=== PATIENT | female | born 1960 | race Caucasian/White ===

== ENCOUNTER 2019-12-04 16:24 | Inpatient (IN) | payer MEDICAID ==
[~2019-12-04] VITALS: Ht 170.2 cm; Wt 54.4 kg
[2019-12-04 17:01] LABS: APTT 28.8 SECONDS (22.8-39.4); INR 1.24 (0.85-1.17); PROTIME 15.5 SECONDS (11.6-15.0)
[2019-12-04 17:04] LABS: BASOPHILS 0.3 % (0-2); EOSINOPHILS 0.3 % (0-7); HEMATOCRIT 34.5 % (36.0-48.0); HEMOGLOBIN 11.5 g/dL (12-16); IMMATURE GRANULOCYTES 3.2 % (0-5); LYMPHOCYTES 5.6 % (15-50); MCHC 33.3 g/dL (31.0-37.0); MCV 87.1 fL (80.0-100.0); MEAN PLATELET VOLUME 8.6 fL (7.4-10.4); MONOCYTES 3.1 % (2-11); NEUTROPHILS 87.5 % (40-80); PLATELET COUNT 212 10x3/uL (130-400); RBC 3.96 10x6/uL (4.00-5.40); RDW 18.7 % (11.5-14.5); WBC 15.4 10x3/uL (4.8-10.8)
[2019-12-04 17:07] LABS: CALC OSMOLALITY 273 mosm/kg (275-300); CALCIUM 8.2 mg/dL (8.5-10.1); CARBON DIOXIDE 23.8 mmol/L (21.0-32.0); CHLORIDE - SERUM 96 mmol/L (98-107); CREATININE - SERUM 0.8 mg/dL (0.6-1.3); GLUCOSE 158 mg/dL (74-106); POTASSIUM - SERUM 3.8 mmol/L (3.5-5.1); SODIUM 132 mmol/L (136-145); UREA NITROGEN 28 mg/dL (7-18); eGFR NON AFRICAN AMERICAN 78 mL/min (90-120)
[2019-12-04 17:20] LABS: ALBUMIN 1.8 g/dL (3.4-5.0); ALKALINE PHOSPHATASE 932 U/L (30-120); ALT (SGPT) 125 U/L (10-68); BILIRUBIN - TOTAL 1.86 mg/dL (0.2-1.3); CKMB 1.4 U/L (0.0-3.6); CREATINE KINASE 139 UL (21-215); MAGNESIUM - SERUM 1.8 mg/dL (1.8-2.4); PROTEIN - SERUM 5.9 g/dL (6.4-8.2)
[2019-12-04 17:22] LABS: TROPONIN-I 0.078 ng/mL (0.000-0.060)
--- NOTE | 2019-12-04 17:45 | NUR ---
STERILE URINE SENT PER IN AND OUT CATHETER AT THIS TIME.
--- NOTE | 2019-12-04 18:07 | NUR ---
22 G TO LAC HAD BEEN ACCIDENTALLY PULLED OUT, CATH TIP INTACT. RESITED IV TO L HAND WITH 22G X1 STICK.
[2019-12-04 18:22] LABS: BILIRUBIN NEGATIVE (NEGATIVE); KETONE NEGATIVE (NEGATIVE); NITRITE NEGATIVE (NEGATIVE); UROBILINOGEN NORMAL mg/dL (< 2)
--- NOTE | 2019-12-04 18:40 | NUR ---
JERICA SENT TO LAB AT THIS TIME.
--- NOTE | 2019-12-04 19:06 | NUR ---
REPORT TO CORNELIO
[2019-12-04 20:17] LABS: % SATURATION 57 % (15-55); IRON 97 ug/dl (35-150); TOTAL IRON BIND CAPACITY 168 ug/dl (260-445); UNSAT IRON BIND CAPACITY 71 ug/dl (150-375)
[2019-12-04 21:32] VITALS: BP 107/69; BMI 18.8
--- NOTE | 2019-12-04 21:44 | NUR ---
RECEIVED PT FROM ER. PT IS AAO AND UP WITH ASSIST. CALL LIGHT W/I REACH. FALL PRECAUTIONS IN PLACE. RR EVEN AND UNLABORED ON 3L 02. VSS AND WNL. QUICKSTART, HISTORY, MED REQ, AND ASSESSMENT COMPLETED. PT DENIES ANY NEEDS AT THIS TIME. NO S/S OF DISTRESS NOTED. WILL CTM.
[2019-12-04 22:35] LABS: CKMB 2.7 U/L (0.0-3.6)
[2019-12-04 22:39] LABS: CREATINE KINASE 261 UL (21-215)
[2019-12-04 22:40] LABS: TROPONIN-I 0.111 ng/mL (0.000-0.060)
[2019-12-05 02:01] LABS: ALBUMIN 1.8 g/dL (3.4-5.0); ALKALINE PHOSPHATASE 853 U/L (30-120); ALT (SGPT) 138 U/L (10-68); BILIRUBIN - TOTAL 1.58 mg/dL (0.2-1.3); CALC OSMOLALITY 271 mosm/kg (275-300); CALCIUM 7.9 mg/dL (8.5-10.1); CARBON DIOXIDE 22.4 mmol/L (21.0-32.0); CHLORIDE - SERUM 99 mmol/L (98-107); CKMB 3.3 U/L (0.0-3.6); CREATINE KINASE 316 UL (21-215); CREATININE - SERUM 0.6 mg/dL (0.6-1.3); GLUCOSE 120 mg/dL (74-106); MAGNESIUM - SERUM 1.7 mg/dL (1.8-2.4); POTASSIUM - SERUM 3.7 mmol/L (3.5-5.1); PROTEIN - SERUM 5.8 g/dL (6.4-8.2); SODIUM 133 mmol/L (136-145); UREA NITROGEN 27 mg/dL (7-18); eGFR NON AFRICAN AMERICAN > 90 mL/min (90-120)
[2019-12-05 02:03] LABS: TROPONIN-I 0.133 ng/mL (0.000-0.060)
[2019-12-05 04:00] VITALS: BP 101/74
--- NOTE | 2019-12-05 05:27 | NUR ---
PT HAD LARGE EPISODE OF INCONTINENCE OF BOWEL AND BLADDER. CLEANED PT AND APPLIED NEW LINEN. PT PREVIOUSLY PULLED OUT PIV BUT STATED THAT SHE DIDNT. CATHETER TIP FULLY INTACT. STARTED NEW PIV TO THE LEFT FOREARM 22GA X1 ATTEMPT. WILL CTM.
--- NOTE | 2019-12-05 07:22 | NUR ---
LYING IN BED AWAKE, ALERT, SPEAKS TO NURSE, DENIES ANY NEEDS. NO DISTRESS NOTED.
[2019-12-05 07:41] LABS: HEMATOCRIT 33.1 % (36.0-48.0); HEMOGLOBIN 11.2 g/dL (12-16); MCH 29.3 pg (26.0-34.0); MCHC 33.8 g/dL (31.0-37.0); MCV 86.6 fL (80.0-100.0); MEAN PLATELET VOLUME 10.4 fL (7.4-10.4); RBC 3.82 10x6/uL (4.00-5.40); RDW 19.3 % (11.5-14.5); WBC 14.2 10x3/uL (4.8-10.8)
[2019-12-05 07:42] LABS: PLATELET COUNT 163 10x3/uL (130-400)
[2019-12-05 08:23] LABS: LYMPHOCYTES 3 % (15-50); MONOCYTES 3 % (2-11); NEUTROPHILS 90 % (40-80); PLATELET ESTIMATE NORMAL
[2019-12-05 08:46] VITALS: BP 113/71
--- NOTE | 2019-12-05 10:07 | NUR ---
NEW IV ACCESS TO RT WRIST W/20GA FOR ORDERED CTA/PAT/TINO CRITICAL CARE NURSE PRACTITIONER. PT TOLERATED WELL.
[2019-12-05 10:12] LABS: CREATINE KINASE 497 UL (21-215)
[2019-12-05 10:57] VITALS: BP 114/72
[2019-12-05 17:03] VITALS: BP 96/60
--- NOTE | 2019-12-05 19:00 | NUR ---
REPORT RECEIVED, WILL CONTINUE POC. PATIENT IS ALERT BUT PLEASANTLY CONFUSED. NO S/S OF DISTRESS OBSERVED, RR EVEN AND UNLABORED ON ROOM AIR. PATIENT DENIES FURTHER NEEDS AT THIS TIME. CL IN REACH, BED LOCKED AND LOWERED. WILL CTM.
[2019-12-05 20:00] VITALS: BP 100/61
[2019-12-06 04:00] VITALS: BP 109/72
[2019-12-06 07:28] LABS: BASOPHILS 0.1 % (0-2); EOSINOPHILS 0 % (0-7); HEMATOCRIT 33.7 % (36.0-48.0); HEMOGLOBIN 11.3 g/dL (12-16); IMMATURE GRANULOCYTES 1.3 % (0-5); LYMPHOCYTES 3.5 % (15-50); MCH 29.4 pg (26.0-34.0); MCHC 33.5 g/dL (31.0-37.0); MCV 87.5 fL (80.0-100.0); MEAN PLATELET VOLUME 8.7 fL (7.4-10.4); MONOCYTES 7.6 % (2-11); NEUTROPHILS 87.5 % (40-80); PLATELET COUNT 161 10x3/uL (130-400); RBC 3.85 10x6/uL (4.00-5.40); RDW 19.7 % (11.5-14.5); WBC 14.3 10x3/uL (4.8-10.8)
[2019-12-06 07:46] LABS: ALBUMIN 1.9 g/dL (3.4-5.0); ALKALINE PHOSPHATASE 925 U/L (30-120); ALT (SGPT) 135 U/L (10-68); BILIRUBIN - TOTAL 1.52 mg/dL (0.2-1.3); CALC OSMOLALITY 276 mosm/kg (275-300); CALCIUM 8.8 mg/dL (8.5-10.1); CHLORIDE - SERUM 101 mmol/L (98-107); CREATININE - SERUM 0.5 mg/dL (0.6-1.3); GLUCOSE 113 mg/dL (74-106); MAGNESIUM - SERUM 1.9 mg/dL (1.8-2.4); POTASSIUM - SERUM 3.3 mmol/L (3.5-5.1); SODIUM 137 mmol/L (136-145); eGFR NON AFRICAN AMERICAN > 90 mL/min (90-120)
[2019-12-06 07:47] LABS: UREA NITROGEN 18 mg/dL (7-18)
[2019-12-06 11:06] VITALS: BP 109/70
[2019-12-06 13:53] VITALS: BMI 18.8
[2019-12-06 16:23] VITALS: BP 105/73
--- NOTE | 2019-12-06 19:30 | NUR ---
PT IN BED, AAO X 1, RESP EVEN AND UNLABORED, NO DISTRESS NOTED, CL IN REACH,SR UP X 2.
[2019-12-06 20:00] VITALS: BP 105/70
--- NOTE | 2019-12-06 23:30 | NUR ---
PT IN BED, PT CONSENTS SIGNED FOR SURGERY, BLOOD, AND ANESTHESIA AT THIS TIME. PER PT AND WITH WITNESSES X 2. PROCEDURES DISCUSSED WITH PT AT THIS TIME.
[2019-12-07 06:33] LABS: BASOPHILS 0.1 % (0-2); EOSINOPHILS 0 % (0-7); HEMATOCRIT 36.2 % (36.0-48.0); HEMOGLOBIN 11.7 g/dL (12-16); IMMATURE GRANULOCYTES 1.5 % (0-5); LYMPHOCYTES 4.7 % (15-50); MCH 28.7 pg (26.0-34.0); MCHC 32.3 g/dL (31.0-37.0); MCV 88.9 fL (80.0-100.0); MONOCYTES 9.1 % (2-11); NEUTROPHILS 84.6 % (40-80); PLATELET COUNT 177 10x3/uL (130-400); RBC 4.07 10x6/uL (4.00-5.40); WBC 13.9 10x3/uL (4.8-10.8)
[2019-12-07 07:09] LABS: APTT 29.6 SECONDS (22.8-39.4); INR 1.13 (0.85-1.17); PROTIME 14.4 SECONDS (11.6-15.0)
[2019-12-07 07:18] LABS: ALBUMIN 1.9 g/dL (3.4-5.0); ALKALINE PHOSPHATASE 905 U/L (30-120); ALT (SGPT) 115 U/L (10-68); CALC OSMOLALITY 276 mosm/kg (275-300); CALCIUM 9.1 mg/dL (8.5-10.1); CARBON DIOXIDE 27.5 mmol/L (21.0-32.0); CHLORIDE - SERUM 100 mmol/L (98-107); CREATININE - SERUM 0.4 mg/dL (0.6-1.3); GLUCOSE 119 mg/dL (74-106); MAGNESIUM - SERUM 1.9 mg/dL (1.8-2.4); POTASSIUM - SERUM 3.1 mmol/L (3.5-5.1); PROTEIN - SERUM 6.3 g/dL (6.4-8.2); SODIUM 137 mmol/L (136-145); UREA NITROGEN 19 mg/dL (7-18); eGFR NON AFRICAN AMERICAN > 90 mL/min (90-120)
[2019-12-07 08:22] VITALS: BP 106/69
[2019-12-07 12:23] VITALS: BP 112/77
--- NOTE | 2019-12-07 13:31 | NUR ---
I have reviewed this patient and I concur with the Shift Assessment completed by the Licensed Practical Nurse today this shift.
[2019-12-07 14:48] VITALS: Ht 170.2 cm; Wt 54.4 kg
--- NOTE | 2019-12-07 14:54 | NUR ---
RETURN TO ROOM 2105 AT THIS TIME AWAKE AND ALERT TO SELF. RESP EVEN AND UNLABORED WITH NO DISTRESS NOTED. HAS DRESSING NOTED TO BACK FROM BIOSPY AND PEG TUBE NOTED. NO C/O NOTED OR VOICED. REMAIN AT BEDSIDE. C/L IN REACH.
[2019-12-07 22:26] VITALS: BP 100/63
[2019-12-08 02:47] VITALS: BP 117/87
--- NOTE | 2019-12-08 05:29 | NUR ---
PT PULLED OUT IV. SHE STATES SHE IS TIRED OF IT AND IS GOING HOME TODAY. I EXPLAINED THAT SHE NEEDS AN IV FOR HER ANTIBIOTICS AND SHE STARTED SCREAMING SAYING SHE DOES NOT WANT TO BE STUCK AGAIN.
[2019-12-08 05:54] LABS: ALBUMIN 1.9 g/dL (3.4-5.0); ALKALINE PHOSPHATASE 921 U/L (30-120); ALT (SGPT) 100 U/L (10-68); BILIRUBIN - TOTAL 1.52 mg/dL (0.2-1.3); CALC OSMOLALITY 281 mosm/kg (275-300); CALCIUM 8.7 mg/dL (8.5-10.1); CHLORIDE - SERUM 103 mmol/L (98-107); GLUCOSE 122 mg/dL (74-106); POTASSIUM - SERUM 3.4 mmol/L (3.5-5.1); PROTEIN - SERUM 6.2 g/dL (6.4-8.2); SODIUM 139 mmol/L (136-145); UREA NITROGEN 20 mg/dL (7-18)
[2019-12-08 05:58] LABS: CREATININE - SERUM 0.6 mg/dL (0.6-1.3); eGFR NON AFRICAN AMERICAN > 90 mL/min (90-120)
[2019-12-08 06:15] VITALS: BP 123/74
[2019-12-08 07:23] LABS: BASOPHILS 0.1 % (0-2); EOSINOPHILS 0.7 % (0-7); HEMATOCRIT 33.8 % (36.0-48.0); HEMOGLOBIN 11.1 g/dL (12-16); IMMATURE GRANULOCYTES 1.2 % (0-5); LYMPHOCYTES 3.2 % (15-50); MCH 29.5 pg (26.0-34.0); MCHC 32.8 g/dL (31.0-37.0); MCV 89.9 fL (80.0-100.0); MEAN PLATELET VOLUME 9.2 fL (7.4-10.4); MONOCYTES 9.1 % (2-11); NEUTROPHILS 85.7 % (40-80); PLATELET COUNT 181 10x3/uL (130-400); RBC 3.76 10x6/uL (4.00-5.40); RDW 20.1 % (11.5-14.5); WBC 13.9 10x3/uL (4.8-10.8)
[2019-12-08 09:27] VITALS: BP 102/60
--- NOTE | 2019-12-08 10:35 | NUR ---
Nutrition Consult/Follow-up: POD 1 PEG placement and excision of malignant back mass. Received consult for TF. Drank some Ensure this AM. Diet: Full Liquid Wt: 120# (12/05) Last BM: 12/03 per chart Labs noted: K+ 3.4, Glu 122, Alb 1.9 Meds reviewed -When PEG ok to use, start bolus feeds; Jevity 1.5 - 4.5 cartons/day (1 carton @ 0800, 1100, 1400 & 1.5 cartons @ 1700) + H2O flushes 100 mL before & after each feeding. -Monitor wt; noted daily wts ordered. -RD following. Thanks for the consult!
[2019-12-08 13:00] VITALS: BP 101/68
--- NOTE | 2019-12-08 13:01 | MORECARE ---
CASE MANAGEMENT DISCHARGE SUMMARY PATIENT: MICH HUI UNIT: [id number] ADM DATE: 12/04/19 AGE: 59 : 60 SEX: F ROOM/BED: D.2100 AUTHOR: ERVIN FLORES PHYSICIAN: REFERRING PHYSICIAN: CESAR CHAVARRIA DO DATE OF SERVICE: 12/08/19 Discharge Plan Patient Name: MICH HUI [facility] : 1960 Planned Disposition: Home with Home Health Anticipated Discharge Date: Discharge Date: Expected LOS: Initial Reviewer: [email or web address] Initial Review Date: 12/08/2019 Generated: 12/08/19 2:00 pm External Providers External Provider: [facility] Next Contact Date: Service Request Date: Service Type: Resolution: Reviewer: Comments: External Provider: Elliott Next Contact Date: Service Request Date: Service Type: Resolution: Reviewer: Comments: Patient Name: MICH HUI Page [id number] at 1301 All edits/amendments must be made on the electronic document DICTATION DATE: 12/08/19 1300 CHIEF KNOWLEDGE OFFICER: DEENA 12/08/19 1300 RPT#: [id number] DC DATE: STATUS: ADM IN [facility] [address] [place] [address] END OF REPORT
--- NOTE | 2019-12-08 13:09 | MORECARE ---
CASE MANAGEMENT DISCHARGE SUMMARY PATIENT: MICH JOYA UNIT: [id number] ADM DATE: 12/04/19 AGE: 59 : 60 SEX: F ROOM/BED: D.5639 AUTHOR: MARK,DOC PHYSICIAN: REFERRING PHYSICIAN: CESAR CHAVARRIA DO DATE OF SERVICE: 12/08/19 Discharge Plan Patient Name: MICH JOYA Facility: [facility]:[place] : 1960 Planned Disposition: Home with Home Health Anticipated Discharge Date: Discharge Date: Expected LOS: Initial Reviewer: [email or web address] Initial Review Date: 12/08/2019 Generated: 12/08/19 2:09 pm Comments DCP- Discharge Planning Updated by [email or web address]: Heavenly Thacker on 12/08/19 12:[address] Patient Name: MICH JOYA Admission Status: ER Accout number: [id number] Admission Date: 12-04-2019 : 1960 Admission Diagnosis:PNEUMONIA, UNSPECIFIED ORGANISM Attending: CESAR CHAVARRIA Current LOS: 4 Anticipated DC Date: Planned Disposition: Home with Home Health [place] Insurance: [place] PRIVATE OPTIONS [place] Discharge Planning Comments: CM met with patient to complete initial dc planning assessment. CM educated patient on the CM role and verbal consent given by patient to complete assessment. Patient lives at home with spouse. At discharge patient plans to return and feels this is a safe discharge. CM discussed availability of home health, rehab services, and medical equipment. Spouse states she is a total care and has not walked in 20 years. States they need a hospital bed so that they can keep her HOB elevated at least 30 degrees at all times. A wedge or pillows would be insufficient to keep her up, because she will slide down ad is to weak to pull herself up in the bed due to her illness. She is going to have tube feedings now. She took a sip of ensure and started choking and needed to be to have her head of bed raised to 45 degrees. I have asked Robert RÍOS to evaluate her. [facility] cannot provide tube feeding per Syd, so I have notified Carter with [facility]. I notified Magdalena with [facility] for home health and clinical faxed. CM will continue to follow and will assist as needed with dc plans/needs. Orthotic Finish Grinding Technician: Heavenly Thacker DCPIA - Discharge Planning Initial Assessment Updated by [email or web address]: Heavenly Thacker on 12/08/19 1:02 pm * Is the patient Alert and Oriented? Yes * PCP Dr. Chavarria * Pharmacy [facility] * Preadmission Environment Home with Family * ADLs Total Dependent * Equipment Bedside Commode Shower Chair * List name and contact numbers for known caregivers / representatives who currently or will assist patient after discharge: Diego Joya - [phone] * Verbal permission to speak to the caregivers and representatives has been obtained from the patient. Yes * Community resources currently utilized None * Additional services required to return to the preadmission environment? Yes * Can the patient safely return to the preadmission environment? Yes * Has this patient been hospitalized within the prior 30 days at any hospital? No Last DP export: 12/08/19 12:01 p Patient Name: MICH JOYA Page [id number] at 1309 All edits/amendments must be made on the electronic document DICTATION DATE: 12/08/19 1309 PROFESSOR OF COMMUNICATION: DEENA 12/08/19 1309 RPT#: [id number] DC DATE: STATUS: ADM IN [facility] [address] [place] [address] END OF REPORT
[2019-12-08 17:18] VITALS: BP 91/68
--- NOTE | 2019-12-08 20:03 | NUR ---
RECIEVED UP IN BED WITH EYES OPENA ND TV ON. ALERT AND ORIENTED. REMAINS BEDFASTY. WEARS BRIEF IN BED. PEG TUBE CHECKED FOR PATENCY WIYH ZERO ASPIRATED. BRUISING TO BILATERAL ARMS AND HANDS. DSG TO LEFT LATERAL BACK. DENIES ANY NEEDS AT THIS TIME.
[2019-12-09 04:00] VITALS: BP 142/86
[2019-12-09 06:01] LABS: BASOPHILS 0.1 % (0-2); EOSINOPHILS 0 % (0-7); HEMATOCRIT 33.3 % (36.0-48.0); IMMATURE GRANULOCYTES 1.2 % (0-5); LYMPHOCYTES 4.3 % (15-50); MCH 29.7 pg (26.0-34.0); MONOCYTES 7.2 % (2-11); NEUTROPHILS 87.2 % (40-80); RDW 20.2 % (11.5-14.5); WBC 13.4 10x3/uL (4.8-10.8)
[2019-12-09 06:02] LABS: PLATELET COUNT 135 10x3/uL (130-400)
[2019-12-09 06:09] LABS: ALBUMIN 1.8 g/dL (3.4-5.0); ALKALINE PHOSPHATASE 946 U/L (30-120); ALT (SGPT) 103 U/L (10-68); BILIRUBIN - TOTAL 1.79 mg/dL (0.2-1.3); CALC OSMOLALITY 279 mosm/kg (275-300); CALCIUM 9.1 mg/dL (8.5-10.1); CARBON DIOXIDE 28.8 mmol/L (21.0-32.0); CHLORIDE - SERUM 102 mmol/L (98-107); CREATININE - SERUM 0.5 mg/dL (0.6-1.3); GLUCOSE 113 mg/dL (74-106); MAGNESIUM - SERUM 1.7 mg/dL (1.8-2.4); POTASSIUM - SERUM 3.6 mmol/L (3.5-5.1); PROTEIN - SERUM 6.1 g/dL (6.4-8.2); SODIUM 139 mmol/L (136-145); UREA NITROGEN 15 mg/dL (7-18); eGFR NON AFRICAN AMERICAN > 90 mL/min (90-120)
[2019-12-09 08:24] VITALS: BP 127/81
[2019-12-09 12:10] VITALS: BP 121/83
[2019-12-09 16:24] VITALS: BP 120/82
--- NOTE | 2019-12-09 20:08 | NUR ---
RECIEVED UP IN BED WITH NO CLOTHES ON. PULLS GOWN OFF AND THROWS SHEET OFF. ASKED HER TO KEEP HERSLF COVERED SO NOONE COULD SEE HER AND SHE DID. ALERT AND ORIENTRED TO PERSON. VERY FIDGETY AND ROLLS BACK AND FORTH IN THE BED. NO IV AT THIS TIME. DOES HAVE PEG TUBE TO RT UPPER ABD QUADRANT. BOLUSED PER ORDERS. REMAINS NPO. LARGE BRUISED TO AC'S AND HANDS. NO S/S OF DISTRESS OBSERVED. AND STATES NO WHEN ASKED IF SHE WAS HURTING.
[2019-12-09 21:14] VITALS: BP 123/83
[2019-12-10 00:16] VITALS: BP 106/79
--- NOTE | 2019-12-10 01:26 | NUR ---
NOT RESTING WELL. DOZES OFF AND THEN WAKES BACK UP. THIS NURSE SAT WITH HER AND SHE WILL CLOSE HER EYES AND REST LONG I AM IN THE ROOM. INCONT OF B/B. HAS A BRIEF ON AND ABLE TO TELL YOU IF SHE IS WET.
[2019-12-10 05:58] LABS: BASOPHILS 0.2 % (0-2); EOSINOPHILS 0 % (0-7); HEMOGLOBIN 10.5 g/dL (12-16); IMMATURE GRANULOCYTES 1.2 % (0-5); MCH 28.6 pg (26.0-34.0); MCHC 31.8 g/dL (31.0-37.0); MCV 89.9 fL (80.0-100.0); MEAN PLATELET VOLUME 8.8 fL (7.4-10.4); MONOCYTES 6.8 % (2-11); NEUTROPHILS 87.8 % (40-80); PLATELET COUNT 135 10x3/uL (130-400); RBC 3.67 10x6/uL (4.00-5.40); RDW 20.3 % (11.5-14.5)
[2019-12-10 06:00] LABS: WBC 17.3 10x3/uL (4.8-10.8)
[2019-12-10 06:31] LABS: ALBUMIN 1.8 g/dL (3.4-5.0); ALT (SGPT) 114 U/L (10-68); BILIRUBIN - TOTAL 1.72 mg/dL (0.2-1.3); CALC OSMOLALITY 278 mosm/kg (275-300); CALCIUM 8.9 mg/dL (8.5-10.1); CARBON DIOXIDE 27.2 mmol/L (21.0-32.0); CHLORIDE - SERUM 102 mmol/L (98-107); CREATININE - SERUM 0.6 mg/dL (0.6-1.3); GLUCOSE 132 mg/dL (74-106); POTASSIUM - SERUM 3.9 mmol/L (3.5-5.1); PROTEIN - SERUM 5.9 g/dL (6.4-8.2); SODIUM 138 mmol/L (136-145); UREA NITROGEN 14 mg/dL (7-18); eGFR NON AFRICAN AMERICAN > 90 mL/min (90-120)
[2019-12-10 06:33] LABS: ALKALINE PHOSPHATASE 1010 U/L (30-120)
[2019-12-10 08:13] VITALS: BP 104/59
[2019-12-10 11:55] VITALS: BP 116/75
[2019-12-10 16:21] VITALS: BP 136/93
--- NOTE | 2019-12-10 19:45 | NUR ---
RECIEVED UP IN BED WITH EYES OPEN AND DISROBED. ALERT AND ORIENTED TO PERSON ONLY. PEG TUB CHECKED FOR PATENCY. NO S/S OF DISTRESS OBSERVED.
[2019-12-11 03:54] VITALS: BP 138/89
[2019-12-11 06:14] LABS: ALBUMIN 1.7 g/dL (3.4-5.0); ALT (SGPT) 100 U/L (10-68); BILIRUBIN - TOTAL 1.76 mg/dL (0.2-1.3); CALC OSMOLALITY 278 mosm/kg (275-300); CALCIUM 8.7 mg/dL (8.5-10.1); CARBON DIOXIDE 29.1 mmol/L (21.0-32.0); CHLORIDE - SERUM 102 mmol/L (98-107); CREATININE - SERUM 0.5 mg/dL (0.6-1.3); GLUCOSE 116 mg/dL (74-106); MAGNESIUM - SERUM 1.5 mg/dL (1.8-2.4); PHOSPHOROUS 2.4 mg/dL (2.5-4.9); POTASSIUM - SERUM 4.3 mmol/L (3.5-5.1); PROTEIN - SERUM 5.6 g/dL (6.4-8.2); SODIUM 139 mmol/L (136-145); UREA NITROGEN 13 mg/dL (7-18); eGFR NON AFRICAN AMERICAN > 90 mL/min (90-120)
[2019-12-11 06:42] LABS: BASOPHILS 0.2 % (0-2); EOSINOPHILS 0.2 % (0-7); HEMATOCRIT 31.7 % (36.0-48.0); HEMOGLOBIN 10.2 g/dL (12-16); IMMATURE GRANULOCYTES 2.3 % (0-5); LYMPHOCYTES 3.2 % (15-50); MCH 29.3 pg (26.0-34.0); MCHC 32.2 g/dL (31.0-37.0); MCV 91.1 fL (80.0-100.0); MEAN PLATELET VOLUME 9.3 fL (7.4-10.4); MONOCYTES 8.5 % (2-11); NEUTROPHILS 85.6 % (40-80); PLATELET COUNT 138 10x3/uL (130-400); RBC 3.48 10x6/uL (4.00-5.40); RDW 20.8 % (11.5-14.5)
[2019-12-11 07:00] LABS: ALKALINE PHOSPHATASE 1049 U/L (30-120)
[2019-12-11 07:17] VITALS: BP 116/82
[2019-12-11 07:44] VITALS: BP 118/79
[2019-12-11 11:40] VITALS: BP 101/70
[2019-12-11] MEDS ORDERED: CIPRO500 MG PO (14:54)
--- NOTE | 2019-12-11 17:27 | MORECARE ---
CASE MANAGEMENT DISCHARGE SUMMARY PATIENT: MICH JOYA UNIT: [id number] ADM DATE: 12/04/19 AGE: 59 : 60 SEX: F ROOM/BED: D.2105 AUTHOR: MARK,DOC PHYSICIAN: REFERRING PHYSICIAN: CESAR CHAVARRIA DO DATE OF SERVICE: 12/11/19 Discharge Plan Patient Name: MICH JOYA Facility: [facility]:[place] : 1960 Planned Disposition: Home with Home Health Anticipated Discharge Date: Discharge Date: Expected LOS: Initial Reviewer: [email or web address] Initial Review Date: 12/08/2019 Generated: 12/11/19 6:26 pm Comments DCP- Discharge Planning Updated by [email or web address]: Heavenly Olguinmarilyn on 12/11/19 4:[address] Received discharge orders. I informed nurse, Megan, that she will need to go via ambulance. She has been bed ridden for 20 years. states he has enough tube feeding supplies to last until his shipment from [facility] comes in. The hospital bed is set up. He would like a WC, and Dr. Kelley would like an overnight pulse ox. Her oxygen sat is 91% on room air now. I have called Carter with [facility] and they will set up an overnight pulse ox. Dr. Kelley states he does not want to order Bipap or Trilogy for the patient. I spoke with Justin about patient's asking for pain Rx. I called Magdalena with [facility] and informed her that patient discharge and discharge clinical/orders faxed. Home today with home health. DCP- Discharge Planning Updated by [email or web address]: Heavenly Thacker on 12/08/19 12:[address] Patient Name: MICH JOYA Admission Status: ER Accout number: [id number] Admission Date: 12-04-2019 : 1960 Admission Diagnosis:PNEUMONIA, UNSPECIFIED ORGANISM Attending: CESAR CHAVARRIA Current LOS: 4 Anticipated DC Date: Planned Disposition: Home with Home Health Primary Insurance: [place] PRIVATE OPTIONS RE[place] Discharge Planning Comments: CM met with patient to complete initial dc planning assessment. CM educated patient on the CM role and verbal consent given by patient to complete assessment. Patient lives at home with spouse. At discharge patient plans to return and feels this is a safe discharge. CM discussed availability of home health, rehab services, and medical equipment. Spouse states she is a total care and has not walked in 20 years. States they need a hospital bed so that they can keep her HOB elevated at least 30 degrees at all times. A wedge or pillows would be insufficient to keep her up, because she will slide down ad is to weak to pull herself up in the bed due to her illness. She is going to have tube feedings now. She took a sip of ensure and started choking and needed to be to have her head of bed raised to 45 degrees. I have asked Robert with to evaluate her. [facility] cannot provide tube feeding per Syd, so I have notified Carter with [facility]. I notified Magdalena with [facility] for home health and clinical faxed. CM will continue to follow and will assist as needed with dc plans/needs. Internal Control Consultant: Heavenly Thacker DCPIA - Discharge Planning Initial Assessment Updated by [email or web address]: Heavenly Thacker on 12/08/19 1:02 pm * Is the patient Alert and Oriented? Yes * PCP Dr. Chavarria * Pharmacy [facility] * Preadmission Environment Home with Family * ADLs Total Dependent * Equipment Bedside Commode Shower Chair * List name and contact numbers for known caregivers / representatives who currently or will assist patient after discharge: Diego Joya - [phone] * Verbal permission to speak to the caregivers and representatives has been obtained from the patient. Yes * Community resources currently utilized None * Additional services required to return to the preadmission environment? Yes * Can the patient safely return to the preadmission environment? Yes * Has this patient been hospitalized within the prior 30 days at any hospital? No Coverage Notice Reviewer: [id number] - Heavenly Thacker Notice Issued Date-Time: 12/08/2019 13:16 Notice Type: Patient Choice Letter Notice Delivered To: Family Member Relationship to Patient: Spouse Shovel Loader Operator Name: Diego Delivery Method: HAND - Hand Delivered Brittney Days: Prior Verbal Notification: Recipient Understood Notice: Yes Recipient Signature: Yes Med Rec Note Co-signed by Attending: Coverage Notice Comment: ESTRELLA FOR [place] CELESTIN Last DP export: 12/08/19 12:09 p Patient Name: MICH JOYA Page 04116 at 1727 All edits/amendments must be made on the electronic document DICTATION DATE: 12/11/191725 WEAVING TEACHER: DEENA 12/11/191725 RPT#: [id number] DC DATE: STATUS: ADM IN [facility] [address] [place] [address] END OF REPORT
--- NOTE | 2019-12-12 09:49 | OP ---
PATIENT NAME: MICH HUI MEDICAL RECORD: [id number] :60 LOCATION:D.M2 D.2105 ADMISSION DATE:12/04/19 SURGEON: ELISA MARSH MD DATE OF OPERATION: 12/07/2019 PREOPERATIVE DIAGNOSES: 1. A 4 cm malignant back lesion. 2. Failure to thrive. 3. Left chest mass. 4. Multiple liver mets. POSTOPERATIVE DIAGNOSES: 1. A 4 cm malignant back lesion. 2. Failure to thrive. 3. Left chest mass. 4. Multiple liver mets. PROCEDURE: 1. Excision of 4 cm malignant back mass. 2. PEG tube placement. SURGEON: Elisa Marsh MD REPORT OF PROCEDURE: The patient was placed in the left lateral decubitus position and the back was prepped and draped in sterile fashion. In the mid back, there was a lesion that was present just to the right of midline. This was about 4 cm in length and about 3 cm wide. The area was infused with a total of 15 mL of 1% lidocaine with epinephrine. An ovoid incision was made about 8 cm long, encompassing this mass in a longitudinal fashion. Electrocautery was used to dissect through the subcutaneous tissues and we came around the mass through what appeared to be normal fatty tissue. We came underneath the mass overlying the fascia into what appeared to be normal fatty tissue as well. The mass was marked appropriately and sent off for frozen and permanent specimen. The subcutaneous tissues were irrigated out and any bleeding that was found was treated with electrocautery. We then reapproximated the subcutaneous tissues with multiple interrupted 3-0 Vicryl and the skin was closed with running subcutaneous 5-0 Monocryl. The patient was then placed in a supine position. The Olympus endoscope was advanced through the mouth and esophagus. The esophagus itself appeared to be normal with no signs of any strictures or lesions. We were able to pass through the GE junction and into the stomach. The patient's stomach was insufflated and I could see an impression where the patient's liver was pushing against the antrum. The patient's liver was noted to be grossly enlarged on the preoperative CT scan with multiple metastatic lesions. We found an area on the body of the stomach to house our PEG tube. This portion of the abdomen was prepped and draped in sterile fashion. A skin incision was made with an 11-blade and an Angiocath needle was advanced through the abdominal wall into the gastric lumen. Through this, we passed a wire which was grasped with an Endo snare and these were all brought out through the mouth. The PEG tube was affixed to the wire, which was then pulled through the mouth and esophagus and out through the abdominal wall. It rested in good position at 2 cm at the skin. We reinserted the scope and we could see that there was no sign of any internal bleeding. At this point, the scope and insufflation was removed. COMPLICATIONS: None. OPERATIVE REPORT [id number] MICH HUI CONDITION: Stable. ANESTHESIA: TIVA and local. BLOOD LOSS: Minimal. TRANSINT:[id number] Voice Confirmation ID: [id number] DOCUMENT ID: [id number] ELISA MARSH MD at 0949 CC: [id number] DICTATION DATE: 12/07/19 1401 ELECTROTYPE FINISHER: 12/07/19 1443 DIS IN 12/11/19 [facility] [address] [place] [address]
--- NOTE | 2019-12-12 10:52 | MORECARE ---
CASE MANAGEMENT DISCHARGE SUMMARY PATIENT: MICH JOYA UNIT: [id number] ADM DATE: 12/04/19 AGE: 59 : 60 SEX: F ROOM/BED: D.2109 AUTHOR: MARK,DOC PHYSICIAN: REFERRING PHYSICIAN: CESAR CHAVARRIA DO DATE OF SERVICE: 12/12/19 Discharge Plan Patient Name: MICH JOYA Facility: [facility]:[place] : 1960 Planned Disposition: Home with Home Health Anticipated Discharge Date: 12/11/19 Discharge Date: 12/11/2019 Expected LOS: 7 Initial Reviewer: [email or web address] Initial Review Date: 12/08/2019 Generated: 12/12/19 11:51 am Comments DCP- Discharge Planning Updated by [email or web address]: Heavenly Olguinmarilyn on 12/11/19 4:[address] Received discharge orders. I informed nurse, Megan, that she will need to go via ambulance. She has been bed ridden for 20 years. states he has enough tube feeding supplies to last until his shipment from [facility] comes in. The hospital bed is set up. He would like a WC, and Dr. Kelley would like an overnight pulse ox. Her oxygen sat is 91% on room air now. I have called Carter with [facility] and they will set up an overnight pulse ox. Dr. Kelley states he does not want to order Bipap or Trilogy for the patient. I spoke with Justin about patient's asking for pain Rx. I called [facility] with [facility] and informed her that patient discharge and discharge clinical/orders faxed. Home today with home health. DCP- Discharge Planning Updated by [email or web address]: Heavenly Thacker on 12/08/19 12:[address] Patient Name: MICH JOYA Admission Status: ER Accout number: [id number] Admission Date: 12-04-2019 : 1960 Admission Diagnosis:PNEUMONIA, UNSPECIFIED ORGANISM Attending: CESAR CHAVARRIA Current LOS: 4 Anticipated DC Date: Planned Disposition: Home with Home Health [place] Insurance: [place] PRIVATE OPTIONS RE[place] Discharge Planning Comments: CM met with patient to complete initial dc planning assessment. CM educated patient on the CM role and verbal consent given by patient to complete assessment. Patient lives at home with spouse. At discharge patient plans to return and feels this is a safe discharge. CM discussed availability of home health, rehab services, and medical equipment. Spouse states she is a total care and has not walked in 20 years. States they need a hospital bed so that they can keep her HOB elevated at least 30 degrees at all times. A wedge or pillows would be insufficient to keep her up, because she will slide down ad is to weak to pull herself up in the bed due to her illness. She is going to have tube feedings now. She took a sip of ensure and started choking and needed to be to have her head of bed raised to 45 degrees. I have asked Robert with to evaluate her. [facility] cannot provide tube feeding per Syd, so I have notified Carter with [facility]. I notified Magdalena with [facility] for home health and clinical faxed. CM will continue to follow and will assist as needed with dc plans/needs. Institution Librarian: Heavenly Thacker DCPIA - Discharge Planning Initial Assessment Updated by [email or web address]: Heavenly Thacker on 12/08/19 1:02 pm * Is the patient Alert and Oriented? Yes * PCP Dr. Chavarria * Pharmacy [facility] * Preadmission Environment Home with Family * ADLs Total Dependent * Equipment Bedside Commode Shower Chair * List name and contact numbers for known caregivers / representatives who currently or will assist patient after discharge: Diego Joya - [phone] * Verbal permission to speak to the caregivers and representatives has been obtained from the patient. Yes * Community resources currently utilized None * Additional services required to return to the preadmission environment? Yes * Can the patient safely return to the preadmission environment? Yes * Has this patient been hospitalized within the prior 30 days at any hospital? No Coverage Notice Reviewer: [email or web address] - Heavenly Thacker Notice Issued Date-Time: 12/08/2019 13:16 Notice Type: Patient Choice Letter Notice Delivered To: Family Member Relationship to Patient: Spouse Content Developer Name: Diego Delivery Method: HAND - Hand Delivered Brittney Days: Prior Verbal Notification: Recipient Understood Notice: Yes Recipient Signature: Yes Med Rec Note Co-signed by Attending: Coverage Notice Comment: ESTRELLA FOR [place] CELESTIN Last DP export: 12/11/19 4:27 p Patient Name: MICH JOYA Page [id number] at 1052 All edits/amendments must be made on the electronic document DICTATION DATE: 12/12/19 1052 LOAD TESTER: DEENA 12/12/19 1052 RPT#: [id number] DC DATE:12/11/19 STATUS: DIS IN [facility] [address] [place] [address] END OF REPORT
== END 2019-12-11 23:31 | disposition home health service (06) | DRG 843 ==
LOC: D.ER 16:24 → D.M2 19:16
PROVIDERS: Family Medicine; General Practice; Surgery; ADMIT Family Medicine; ATTEND Family Medicine
PROC: 0JB73ZZ Excision of Back Subcutaneous Tissue and Fascia, Percutaneous Approach (ICD-10-PCS; principal; 2019-12-07 12:45)
PROC: 0DH63UZ Insertion of Feeding Device into Stomach, Percutaneous Approach (ICD-10-PCS; 2019-12-07 12:45)
DX: C7A.1 Malignant poorly differentiated neuroendocrine tumors (principal); J18.9 Pneumonia, unspecified organism; J96.01 Acute respiratory failure with hypoxia; R53.2 Functional quadriplegia; E87.1 Hypo-osmolality and hyponatremia; Z68.1 Body mass index [BMI] 19.9 or less, adult; J98.11 Atelectasis; J94.2 Hemothorax; C78.7 Secondary malignant neoplasm of liver and intrahepatic bile duct; C78.00 Secondary malignant neoplasm of unspecified lung; D64.9 Anemia, unspecified; R73.9 Hyperglycemia, unspecified; R62.7 Adult failure to thrive; R16.0 Hepatomegaly, not elsewhere classified; R00.0 Tachycardia, unspecified; C80.1 Malignant (primary) neoplasm, unspecified; Z87.891 Personal history of nicotine dependence